=== PATIENT | male | born 1965 | race Caucasian/White ===

== ENCOUNTER → 2016-09-07 | Outpatient (CLI) | payer SELFPAY ==
[2016-09-07 12:57] LABS: CH 32.8; HCT 54.4 % (39.0-53.0); HGB 18.4 gm/dL (13.0-17.5); MCH 32.7 pg (25.0-35.0); MCHC 33.8 g/dL (31.0-37.0); Mean Platelet Volume 8.1; RBC 5.61 m/uL (4.30-5.90); RDW 13.2 % (11.5-15.5); WBC 13.3 k/uL (3.8-10.6)
[2016-09-07 13:15] LABS: ALT 28 U/L (21-72); AST 22 U/L (17-59); Alkaline Phosphatase 61 U/L (38-126); Anion Gap 12 mmol/L; Blood Urea Nitrogen 16 mg/dL (9-20); Calcium 9.5 mg/dL (8.4-10.2); Carbon Dioxide 29 mmol/L (22-30); Chloride 99 mmol/L (98-107); Glucose 132 mg/dL (74-99); Non-African American GFR(MDRD) >60 (>60 ml/min/1.73 sqM); Potassium 3.5 mmol/L (3.5-5.1); Sodium 140 mmol/L (137-145); Total Bilirubin 0.6 mg/dL (0.2-1.3); Total Protein 7.7 g/dL (6.3-8.2)
== END | disposition home or self-care (01) ==
LOC: LABWHC1 12:28
PROVIDERS: ATTEND Surgery
DX: R10.9 Unspecified abdominal pain (principal)
CPT/HCPCS: 36415; 80053; 85027

== ENCOUNTER → 2016-09-14 | Outpatient (CLI) | payer SELFPAY ==
--- NOTE | 2016-09-14 13:21 | CT ---
EXAMINATION TYPE: CT abdomen pelvis w con DATE OF EXAM: 09/14/2016 12:39 PM COMPARISON: CT abdomen and pelvis August 05, 2015. HISTORY: Abdominal pain per order. Generalized abdominal pain since on the July per patient. CT DLP: 3408.8 mGycm, Automated Exposure Control for Dose Reduction was Utilized. CONTRAST: CT scan of the abdomen and pelvis is performed with oral and with IV Contrast, patient injected with 100 mL of Omnipaque 300. FINDINGS: LUNG BASES: No significant abnormality is appreciated. LIVER/GB: A 1.3 cm low dense cysts left hepatic lobe on axial image 21 is stable. PANCREAS: Mild diffuse fatty infiltration of pancreas is redemonstrated. SPLEEN: No significant abno rmality is seen. ADRENALS: Slightly low dense nodular thickening to left adrenal gland on axial image 31 is stable fav or benign. KIDNEYS: No significant abnormality is seen. BOWEL: The oral contrast reaches level of the terminal ileum making evaluation of: Suboptimal. There is no suspicious small or large bowel dilatation identified. Mild wall thickening at level of mid tra nsverse colon is present with similar mild wall thickening seen involving the proximal left:. There a re few diverticula in the sigmoid colon. There is no CT evidence for acute diverticulitis. PROSTATE/SEMINAL VESICLES: There are few scattered pelvic phleboliths seen. Prostate gland is not en larged. LYMPH NODES: No greater than 1cm abdominal or pelvic lymph nodes are appreciated. OSSEOUS STRUCTURES: There is multilevel disc space narrowing and vacuum disc phenomenon throughout th e thoracolumbar spine. OTHER: No significant additional abnormality is seen. IMPRESSION: Cannot exclude a mild multifocal colitis versus product of nondistention otherwise unrema rkable study.
== END ==
LOC: RADCTMAIN 11:48
PROVIDERS: ATTEND Surgery
DX: R10.9 Unspecified abdominal pain (principal)
CPT/HCPCS: 74177; Q9967

== ENCOUNTER → 2017-01-17 | Outpatient (CLI) | payer OTHER ==
--- NOTE | 2017-01-17 12:50 | XR ---
EXAMINATION TYPE: XR lumbosacral spine min 4V DATE OF EXAM: 01/17/2017 CLINICAL HISTORY: pain COMPARISON: NONE TECHNIQUE: Frontal, lateral, and oblique images of the lumbar spine are obtained. FINDINGS: There are 5 lumbar type vertebral bodies identified. The lumbar spine shows satisfactory alignment without evidence of acute fracture or dislocation. Vertebral body heights are within normal limits. Moderate multilevel degenerative disc space narrowing and spondylosis. Facet joint arthropat hy. The overlying soft tissue appears unremarkable. IMPRESSION: No acute fracture or dislocation is seen in the lumbar spine.ICD 10 NO FRACTURE, INITIAL EVALUATION
== END | disposition home or self-care (01) ==
LOC: RADXRMAIN 12:25
PROVIDERS: ATTEND Family Medicine
DX: M13.80 Other specified arthritis, unspecified site (principal); R54 Age-related physical debility
CPT/HCPCS: 72110

== ENCOUNTER 2020-01-08 17:26 | Emergency (ER) | payer MEDICARE, OTHER ==
--- NOTE | 2020-01-08 18:33 | ED ---
Recheck HPI - General Chief Complaint: Recheck/Abnormal Lab/Rx Stated Complaint: poss med reaction/facial swelling & numbness Time Seen by Provider: 01/08/20 18:04 Source: patient, RN notes reviewed Mode of arrival: ambulatory Limitations: no limitations - History of Present Illness Initial Comments: 54-year-old male present emergency from chief complaint of right-sided facial issues. Patient states that he was told that his face looked swollen. Patient states that his mild does not close all the way on the right states she's been drooling states that his eye feels weird on the right. Patient states this started a few days ago. Patient denies any difficulty swallowing no weakness of his upper or lower extremities. No difficulty and bleeding no headache no dizziness. - Related Data Previous Rx's Medication Instructions Recorded predniSONE 50 mg PO DAILY #5 tab 01/08/20 valACYclovir HCL [Valtrex] 1,000 mg PO Q8HR #30 tab 01/08/20 Allergies Allergy/AdvReac Type Severity Reaction Status Date / Time No Known Allergies Allergy Verified 01/08/20 17:30 Review of Systems ROS Statement: Those systems with pertinent positive or pertinent negative responses have been documented in the HPI. ROS Other: All systems not noted in ROS Statement are negative. Past Medical History Additional Past Medical History / Comment(s): [facility] Past Surgical History: Hernia Repair Additional Past Surgical History / Comment(s): Hemmroihd Past Psychological History: No Psychological Hx Reported Smoking Status: Current every day smoker Past Alcohol Use History: Occasional Past Drug Use History: None Reported General Exam Limitations: no limitations General appearance: alert, in no apparent distress Head exam: Present: atraumatic, normocephalic, normal inspection Eye exam: Present: normal appearance, PERRL, EOMI. Absent: scleral icterus, conjunctival injection, periorbital swelling ENT exam: Present: mucous membranes moist, other (Asymmetry noted on the right side of the face). Absent: normal exam, normal oropharynx Neck exam: Present: normal inspection, full ROM. Absent: tenderness, meningismus, lymphadenopathy Respiratory exam: Present: normal lung sounds bilaterally. Absent: respiratory distress, wheezes, rales, rhonchi, stridor Cardiovascular Exam: Present: regular rate, normal rhythm, normal heart sounds. Absent: systolic murmur, diastolic murmur, rubs, gallop, clicks Extremities exam: Present: other (Upper and lower extremity strength equal bilaterally 5/5) Neurological exam: Present: alert, oriented X3, CN II-XII intact, reflexes normal, other. Absent: motor sensory deficit Expanded Patient oriented to: Present: person, place, time Speech: Present: fluid speech Cranial nerves: EOM's Intact: Normal, Gag Reflex: Normal, Tongue Deviation: Normal, Nystagmus: Normal, Facial Sensation: Abnormal Right, Facial Palsy without Forehead Movement: Abnormal Right Cerebellar function: Finger to Nose: Normal, Heel to Maria: Normal, Romberg: Normal Sensory exam: Upper Extremity Light Touch: Normal, Lower Extremity Light Touch: Normal Motor strength exam: RUE: 5, LUE: 5, RLE: 5, LLE: 5 Eye Response: (4) open spontaneously Motor Response: (6) obeys commands Verbal Response: (5) oriented [place] Total: 15 Course Vital Signs 01/08/20 17:30 Temperature 97.8 F Pulse Rate 79 Respiratory 16 Rate Blood Pressure 154/77 O2 Sat by Pulse 98 Oximetry Medical Decision Making - Medical Decision Making 54-year-old male present emergency from for right-sided facial issues. Patient has right-sided Michel's palsy. Patient advised to use artificial tears of his r ight eye, patient will be started on prednisone, Valtrex will follow-up neurology is also advised to follow-up with ECP tomorrow. Disposition Clinical Impression: Right-sided Michel's palsy Disposition: HOME SELF-CARE Condition: Stable Instructions (If sedation given, give patient instructions): Michel Palsy (ED) Additional Instructions: Please return to the Emergency Department if symptoms worsen or any other concerns. Prescriptions: predniSONE 50 mg PO DAILY #5 tab valACYclovir HCL [Valtrex] 1,000 mg PO Q8HR #30 tab Is patient prescribed a controlled substance at d/c from ED?: No Referrals: Mart Bianchi MD [Primary Care Provider] - 1-2 days Tl Munguia DO [STAFF PHYSICIAN] - 1-2 days Time of Disposition: 18:33
[2020-01-08 18:53] VITALS: BP 134/78; PULSE 70; RESP 18; TEMP 97.2
== END 2020-01-08 18:53 | disposition home or self-care (01) ==
LOC: EC 17:26
DX: G51.0 Bell's palsy (principal); F17.200 Nicotine dependence, unspecified, uncomplicated
CPT/HCPCS: 99283

== ENCOUNTER 2020-06-26 09:04 | Inpatient (IN) | payer MEDICARE, OTHER ==
[2020-06-26] MEDS ORDERED: ACETAMINOPHEN TAB 500 MG TAB PO STA (09:29)
[2020-06-26] MEDS ORDERED: ONDANSETRON 4 MG/2 ML VIAL IVP STA (09:29)
[2020-06-26] MEDS ORDERED: SODIUM CHLORIDE 0.9% 1,000 ML IV STA (09:29)
--- NOTE | 2020-06-26 09:38 | ED ---
Weakness HPI - General Chief complaint: Weakness Stated complaint: weakness Time Seen by Provider: 06/26/20 09:21 Source: patient Mode of arrival: EMS Limitations: no limitations - History of Present Illness Initial comments: Patient is a 55-year-old male, with history of TBI, HUGHES, presenting to the emergency Department with complaints of weakness that's been increasing over the past week. Patient states he feels weakness in his legs, he has had a few falls last week. He is complaining of some right shoulder pain from one of his falls. He does not remember hitting his head. He is not on blood thinners. He is complaining of a headache however he states he normally gets headaches, as feels like his normal headache. He takes Tylenol at home for these headaches which does help. He denies being dizzy, no chest pain. He does seem mildly short of breath. He denies any abdominal pain, he did have some nausea and vomiting today. He denies any fevers or chills. He has been having regular bowel movements. Denies any dysuria. He states he's been taking his medications as prescribed. He has no further complaints at this time. Upon arrival to the ER, his vital signs are stable. - Related Data Home Medications Medication Instructions Recorded Confirmed Acetaminophen Tab [Tylenol Tab] 1,000 mg PO Q6HR PRN 06/26/20 06/26/20 Atenolol/Chlorthalidone 1 tab PO DAILY 06/26/20 06/26/20 [Atenolol-Chlorthalidone 50-25] Atorvastatin Calcium [Lipitor] 40 mg PO DAILY 06/26/20 06/26/20 Benazepril HCl 10 mg PO DAILY 06/26/20 06/26/20 Furosemide [Lasix] 40 mg PO TID 06/26/20 06/26/20 Gabapentin [Neurontin] 800 mg PO TID 06/26/20 06/26/20 Hydrocortisone Cream 1 applic TOPICAL QID 06/26/20 06/26/20 [Hydrocortisone 2.5% Cream] Naproxen 500 mg PO BID 06/26/20 06/26/20 Potassium Chloride [Klor-Con 20] 40 meq PO TID 06/26/20 06/26/20 Allergies Allergy/AdvReac Type Severity Reaction Status Date / Time No Known Allergies Allergy Verified 01/29/21 11:19 Review of Systems ROS Statement: Those systems with pertinent positive or pertinent negative responses have been documented in the HPI. ROS Other: All systems not noted in ROS Statement are negative. Past Medical History Additional Past Medical History / Comment(s): HUGHES Past Surgical History: Hernia Repair Additional Past Surgical History / Comment(s): Hemmroihd Past Psychological History: No Psychological Hx Reported Smoking Status: Current every day smoker Past Alcohol Use History: Occasional Past Drug Use History: None Reported General Exam - General Exam Comments Initial Comments: GENERAL: Patient is well-developed and well-nourished. Patient is nontoxic and in no acute distress. HEAD: Atraumatic, normocephalic. EYES: Pupils equal round and reactive to light, extraocular movements intact, sclera anicteric, conjunctiva are normal. Eyelids were unremarkable. ENT: TMs normal, nares patent, oropharynx clear without exudates. Moist mucous membranes. Hard of hearing. NECK: Normal range of motion, supple without lymphadenopathy or JVD. LUNGS: Unlabored respirations. Breath sounds clear to auscultation bilaterally and equal. No wheezes rales or rhonchi. HEART: Regular rate and rhythm without murmurs, rubs or gallops. ABDOMEN: Soft, nontender, normoactive bowel sounds. No guarding, no rebound. No masses appreciated. : Deferred MUSCULOSKELETAL: Mild pain with palpation of the right anterior shoulder, he has full range of motion. Normal extremities with adequate strength and normal range of motion, no pitting or edema. No clubbing or cyanosis. NEUROLOGICAL: Patient is alert and oriented x 3. Motor and sensory are also intact. Cranial nerves II through XII grossly intact. Symmetrical smile. Normal speech, normal gait. PSYCH: Normal mood, normal affect. SKIN: Warm, Dry, normal turgor, no rashes or lesions noted. Limitations: no limitations Course Vital Signs 06/26/20 06/26/20 09:15 10:00 Temperature 98.1 F Pulse Rate 92 90 Respiratory 18 20 Rate Blood Pressure 146/94 150/96 O2 Sat by Pulse 96 95 Oximetry EKG Findings - EKG Comments: EKG Findings:: Sinus rhythm with fusion complexes, possible left atrial enlargement, left axis deviation, no signs of acute ischemia. Ventricular rate 90, VA interval 158, QT 362. Medical Decision Making - Medical Decision Making Patient is a 55-year-old male with history of TBI,HUGHES, presenting for weakness, multiple falls over the past week. His vital signs are stable upon arrival. EKG shows no acute process. Troponin is normal, lactic acid is slightly up at 2.7, urine shows no evidence of infection. Chest x-ray reveals a right-sided mass, no other abnormalities. CT of the chest confirms a right hilar mass consistent with a neoplasm. I did speak with Dr. Bianchi regarding this. Patient will be admitted for weakness, multiple falls and new right-sided mass. Case discussed with Dr. Lester. - Lab Data Result diagrams: 06/26/20 09:31 06/26/20 09:31 Lab Results 06/26/20 06/26/20 06/26/20 Range/Units 09:31 09:31 09:31 WBC 10.2 (3.8-10.6) k/uL RBC 5.09 (4.30-5.90) m/uL Hgb 16.7 (13.0-17.5) gm/dL Hct 47.9 (39.0-53.0) % MCV 94.1 (80.0-100.0) fL MCH 32.8 (25.0-35.0) pg MCHC 34.8 (31.0-37.0) g/dL RDW 12.8 (11.5-15.5) % Plt Count 198 (150-450) k/uL MPV 8.6 Neutrophils % 77 % Lymphocytes % 13 % Monocytes % 7 % Eosinophils % 1 % Basophils % 1 % Neutrophils # 7.9 H (1.3-7.7) k/uL Lymphocytes # 1.3 (1.0-4.8) k/uL Monocytes # 0.7 (0-1.0) k/uL Eosinophils # 0.1 (0-0.7) k/uL Basophils # 0.1 (0-0.2) k/uL PT 11.0 (9.0-12.0) sec INR 1.0 (<1.2) APTT 25.3 (22.0-30.0) sec Sodium (137-145) mmol/L Potassium (3.5-5.1) mmol/L Chloride (98-107) mmol/L Carbon Dioxide (22-30) mmol/L Anion Gap mmol/L BUN (9-20) mg/dL Creatinine (0.66-1.25) mg/dL Est GFR (CKD-EPI)AfAm (>60 ml/min/1.73 sqM) Est GFR (CKD-EPI)NonAf (>60 ml/min/1.73 sqM) Glucose (74-99) mg/dL Lactic Ac Sepsis Rflx Plasma Lactic Acid Steve (0.7-2.0) mmol/L Calcium (8.4-10.2) mg/dL Magnesium (1.6-2.3) mg/dL Total Bilirubin (0.2-1.3) mg/dL AST (17-59) U/L ALT (4-49) U/L Alkaline Phosphatase (38-126) U/L Creatine Kinase (55-170) U/L Troponin I (0.000-0.034) ng/mL NT-Pro-B Natriuret Pep pg/mL Total Protein (6.3-8.2) g/dL Albumin (3.5-5.0) g/dL Urine Color Yellow Urine Appearance Clear (Clear) Urine pH 7.5 (5.0-8.0) Ur Specific [place] 1.020 (1.001-1.035) Urine Protein 2+ H (Negative) Urine Glucose (UA) Negative (Negative) Urine Ketones Negative (Negative) Urine Blood Negative (Negative) Urine Nitrite Negative (Negative) Urine Bilirubin Negative (Negative) Urine Urobilinogen <2.0 (<2.0) mg/dL Ur Leukocyte Esterase Negative (Negative) Urine RBC 2 (0-5) /hpf Urine WBC 3 (0-5) /hpf Urine Mucus Rare H (None) /hpf 06/26/20 06/26/20 06/26/20 Range/Units 09:31 09:31 09:31 WBC (3.8-10.6) k/uL RBC (4.30-5.90) m/uL Hgb (13.0-17.5) gm/dL Hct (39.0-53.0) % MCV (80.0-100.0) fL MCH (25.0-35.0) pg MCHC (31.0-37.0) g/dL RDW (11.5-15.5) % Plt Count (150-450) k/uL MPV Neutrophils % % Lymphocytes % % Monocytes % % Eosinophils % % Basophils % % Neutrophils # (1.3-7.7) k/uL Lymphocytes # (1.0-4.8) k/uL Monocytes # (0-1.0) k/uL Eosinophils # (0-0.7) k/uL Basophils # (0-0.2) k/uL PT (9.0-12.0) sec INR (<1.2) APTT (22.0-30.0) sec Sodium 137 (137-145) mmol/L Potassium 3.8 (3.5-5.1) mmol/L Chloride 102 (98-107) mmol/L Carbon Dioxide 25 (22-30) mmol/L Anion Gap 10 mmol/L BUN 15 (9-20) mg/dL Creatinine 0.67 (0.66-1.25) mg/dL Est GFR (CKD-EPI)AfAm >90 (>60 ml/min/1.73 sqM) Est GFR (CKD-EPI)NonAf >90 (>60 ml/min/1.73 sqM) Glucose 126 H (74-99) mg/dL Lactic Ac Sepsis Rflx Plasma Lactic Acid Steve 2.7 H* (0.7-2.0) mmol/L Calcium 9.0 (8.4-10.2) mg/dL Magnesium 1.9 (1.6-2.3) mg/dL Total Bilirubin 0.7 (0.2-1.3) mg/dL AST 30 (17-59) U/L ALT 33 (4-49) U/L Alkaline Phosphatase 67 (38-126) U/L Creatine Kinase 89 (55-170) U/L Troponin I <0.012 (0.000-0.034) ng/mL NT-Pro-B Natriuret Pep pg/mL Total Protein 7.3 (6.3-8.2) g/dL Albumin 4.0 (3.5-5.0) g/dL Urine Color Urine Appearance (Clear) Urine pH (5.0-8.0) Ur Specific [place] (1.001-1.035) Urine Protein (Negative) Urine Glucose (UA) (Negative) Urine Ketones (Negative) Urine Blood (Negative) Urine Nitrite (Negative) Urine Bilirubin (Negative) Urine Urobilinogen (<2.0) mg/dL Ur Leukocyte Esterase (Negative) Urine RBC (0-5) /hpf Urine WBC (0-5) /hpf Urine Mucus (None) /hpf 06/26/20 06/26/20 06/26/20 Range/Units 09:31 10:05 12:18 WBC (3.8-10.6) k/uL RBC (4.30-5.90) m/uL Hgb (13.0-17.5) gm/dL Hct (39.0-53.0) % MCV (80.0-100.0) fL MCH (25.0-35.0) pg MCHC (31.0-37.0) g/dL RDW (11.5-15.5) % Plt Count (150-450) k/uL MPV Neutrophils % % Lymphocytes % % Monocytes % % Eosinophils % % Basophils % % Neutrophils # (1.3-7.7) k/uL Lymphocytes # (1.0-4.8) k/uL Monocytes # (0-1.0) k/uL Eosinophils # (0-0.7) k/uL Basophils # (0-0.2) k/uL PT (9.0-12.0) sec INR (<1.2) APTT (22.0-30.0) sec Sodium (137-145) mmol/L Potassium (3.5-5.1) mmol/L Chloride (98-107) mmol/L Carbon Dioxide (22-30) mmol/L Anion Gap mmol/L BUN (9-20) mg/dL Creatinine (0.66-1.25) mg/dL Est GFR (CKD-EPI)AfAm (>60 ml/min/1.73 sqM) Est GFR (CKD-EPI)NonAf (>60 ml/min/1.73 sqM) Glucose (74-99) mg/dL Lactic Ac Sepsis Rflx Y Plasma Lactic Acid Steve 1.6 (0.7-2.0) mmol/L Calcium (8.4-10.2) mg/dL Magnesium (1.6-2.3) mg/dL Total Bilirubin (0.2-1.3) mg/dL AST (17-59) U/L ALT (4-49) U/L Alkaline Phosphatase (38-126) U/L Creatine Kinase (55-170) U/L Troponin I (0.000-0.034) ng/mL NT-Pro-B Natriuret Pep 62 pg/mL Total Protein (6.3-8.2) g/dL Albumin (3.5-5.0) g/dL Urine Color Urine Appearance (Clear) Urine pH (5.0-8.0) Ur Specific [place] (1.001-1.035) Urine Protein (Negative) Urine Glucose (UA) (Negative) Urine Ketones (Negative) Urine Blood (Negative) Urine Nitrite (Negative) Urine Bilirubin (Negative) Urine Urobilinogen (<2.0) mg/dL Ur Leukocyte Esterase (Negative) Urine RBC (0-5) /hpf Urine WBC (0-5) /hpf Urine Mucus (None) /hpf Disposition Clinical Impression: Weakness, Multiple falls, Chest mass Disposition: ADMITTED IP TO THIS [facility] Condition: Stable Decision Date: 06/26/20 Decision Time: 14:04
[2020-06-26 09:40] LABS: Basophils # (A) 0.1 k/uL (0-0.2); Basophils % (A) 1 %; Eosinophils # (A) 0.1 k/uL (0-0.7); Eosinophils % (A) 1 %; HCT 47.9 % (39.0-53.0); HGB 16.7 gm/dL (13.0-17.5); Lymphocytes # (A) 1.3 k/uL (1.0-4.8); Lymphocytes % (A) 13 %; MCH 32.8 pg (25.0-35.0); MCHC 34.8 g/dL (31.0-37.0); MCV 94.1 fL (80.0-100.0); Mean Platelet Volume 8.6; Monocytes # (A) 0.7 k/uL (0-1.0); Monocytes % (A) 7 %; Neutrophils # (A) 7.9 k/uL (1.3-7.7); Neutrophils % (A) 77 %; Platelet Count 198 k/uL (150-450); RBC 5.09 m/uL (4.30-5.90); RDW 12.8 % (11.5-15.5); WBC 10.2 k/uL (3.8-10.6)
[2020-06-26 09:49] LABS: Partial Thromboplastin Time 25.3 sec (22.0-30.0)
[2020-06-26 10:01] LABS: ALT 33 U/L (4-49); AST 30 U/L (17-59); African American GFR (CKD) >90 (>60 ml/min/1.73 sqM); Alkaline Phosphatase 67 U/L (38-126); Anion Gap 10 mmol/L; Blood Urea Nitrogen 15 mg/dL (9-20); Carbon Dioxide 25 mmol/L (22-30); Chloride 102 mmol/L (98-107); Creatine Kinase 89 U/L (55-170); Glucose 126 mg/dL (74-99); Magnesium 1.9 mg/dL (1.6-2.3); Non-African American GFR(CKD) >90 (>60 ml/min/1.73 sqM); Potassium 3.8 mmol/L (3.5-5.1); Sodium 137 mmol/L (137-145); Total Bilirubin 0.7 mg/dL (0.2-1.3); Total Protein 7.3 g/dL (6.3-8.2)
--- NOTE | 2020-06-26 10:03 | XR ---
EXAMINATION TYPE: XR chest 2V DATE OF EXAM: 06/26/2020 COMPARISON: NONE HISTORY: Shortness of breath TECHNIQUE: Frontal and lateral views of the chest are obtained. FINDINGS: Scattered senescent parenchymal changes noted. Hyperinflation compatible with COPD. Masslike density right suprahilar region. CT is recommended for further evaluation. Heart size is stable. Mediastinal structures are stable and grossly unremarkable. No evidence for hilar prominence. Degenerative changes dorsal spine. IMPRESSION: 1. Masslike density right suprahilar region. CT is recommended for further evaluation.
--- NOTE | 2020-06-26 10:04 | XR ---
EXAMINATION TYPE: XR shoulder complete RT DATE OF EXAM: 06/26/2020 CLINICAL HISTORY: pain TECHNIQUE: Three views of the right shoulder are obtained. COMPARISON: None FINDINGS: There is no acute fracture/dislocation evident. The acromioclavicular and glenohumeral bridgett int spaces appear within normal limits. The visualized ribs are intact and unremarkable. IMPRESSION: 1. There is no acute fracture or dislocation. ICD 10 NO FRACTURE, INITIAL EVALUATION
[2020-06-26 13:07] LABS: Appearance,Urine Clear (Clear); Bilirubin,Urine Negative (Negative); Blood,Urine Negative (Negative); Color,Urine Yellow; Glucose,Urine (UA) Negative (Negative); Ketones,Urine Negative (Negative); Leukocyte Esterase,Urine Negative (Negative); Mucus,Urine Rare /hpf; Nitrite,Urine Negative (Negative); PH, Urine 7.5 (5.0-8.0); Protein,Urine 2+ (Negative); RBC,Urine 2 /hpf (0-5); Urobilinogen,Urine <2.0 mg/dL (<2.0); WBC,Urine 3 /hpf (0-5)
[2020-06-26] MEDS ORDERED: RX INFO: IV CONTRAST WAS GIVEN 1 EACH MISC MISCELLANE PRN ×2 (13:28→17:18)
[2020-06-26] MEDS ORDERED: KETOROLAC 15 MG/ML 1 ML VIAL IVP PRN (14:04)
[2020-06-26] MEDS ORDERED: NALOXONE 0.4 MG/ML 1 ML VIAL IV PRN (14:04)
--- NOTE | 2020-06-26 14:23 | CT ---
EXAMINATION TYPE: CT chest w con DATE OF EXAM: 06/26/2020 COMPARISON: Chest x-ray earlier today and told her x-ray 2009. HISTORY: Shortness of breath, mass on xray. CT DLP: 799.7 mGycm. Automated Exposure Control for Dose Reduction was Utilized. TECHNIQUE: CT scan of the thorax is performed following with IV Contrast, patient injected with 100 mL of Isovue 300. FINDINGS: LUNGS: There is abnormality medial right upper lobe corresponding to recent x-ray, there is mass or m asslike consolidation. Former is strongly favored with and right hilar invasion. This measures roughl y 10 cm AP by 4 cm transversely axial image 18 x 7 cm craniocaudal dimension sagittal image 48. There appears to be direct extension or additional adenopathy in the right tracheobronchial and right para tracheal region. Slightly enlarged subcarinal lymph node. Tiny right pleural effusion. Mild bibasilar atelectatic change MEDIASTINUM: There are no greater than 1 cm hilar or mediastinal lymph nodes. Tiny pericardial effusi on is seen. Mild cardiomegaly OTHER: Underlying scoliotic curvature. Multilevel spurring. Bilateral gynecomastia. There is 2.1 cm low dense lesion left hepatic lobe. Slight thickening left ad renal gland on axial image 52. No definitive masses. IMPRESSION: Confirmation of right hilar mass with anterior superior upper lobe extension consistent w ith neoplasm. Possible postobstructive atelectatic change. Abnormal thoracic adenopathy. Follow-up PE T CT and Sampling is advised.
[2020-06-26] MEDS: SODIUM CHLORIDE 0.9% 1,000 ML IV SCH (15:22)
[2020-06-26] MEDS ORDERED: ACETAMINOPHEN TAB 500 MG TAB PO PRN (17:16)
[2020-06-26] MEDS: ONDANSETRON 4 MG/2 ML VIAL IVP PRN (18:05)
[2020-06-26] MEDS: FUROSEMIDE 40 MG TAB PO SCH (20:13)
[2020-06-26] MEDS: POTASSIUM CHLORIDE ER 20 MEQ TAB.ER PO SCH (22:04)
[2020-06-26] MEDS: GABAPENTIN 400 MG CAP PO SCH (22:05)
[2020-06-27] MEDS: ACETAMINOPHEN TAB 325 MG TAB PO PRN ×2 (03:05→14:50)
[2020-06-27] MEDS: ONDANSETRON 4 MG/2 ML VIAL IVP PRN (03:05)
[2020-06-27] MEDS: SODIUM CHLORIDE 0.9% 1,000 ML IV SCH ×2 (04:03→17:26)
[2020-06-27 07:49] VITALS: RESP 18
[2020-06-27] MEDS: FUROSEMIDE 40 MG TAB PO SCH ×3 (08:06→17:22)
[2020-06-27] MEDS: GABAPENTIN 400 MG CAP PO SCH ×2 (08:06→16:43)
[2020-06-27] MEDS: POTASSIUM CHLORIDE ER 20 MEQ TAB.ER PO SCH ×2 (08:28→16:43)
[2020-06-27] MEDS ORDERED: CHLORTHALIDONE 25 MG TAB PO SCH (09:00)
[2020-06-27] MEDS ORDERED: atenoloL 50 MG TAB PO SCH (09:00)
[2020-06-27] MEDS ORDERED: lisinopriL 10 MG TAB PO SCH (09:00)
[2020-06-27] MEDS ORDERED: lisinopriL 20 MG TAB PO SCH (10:15)
--- NOTE | 2020-06-27 10:55 | P.GSCN ---
History of Present Illness Consult date: 06/27/20 Reason for Consult: Right upper lobe lung mass Requesting physician: Mart Bianchi History of present illness: This is a 55-year-old gentleman who follows on an outpatient basis with Dr. Bianchi for primary care. He has a previous medical history of traumatic brain injury, hypertension, hyperlipidemia, and current tobacco dependence. He presented to [facility] emergency room with complaints of lower extremity weakness over the previous several days. He reports increased lower extremity edema and multiple falls, he did hit his head but it's unclear if he lost consciousness. He also reports vomiting, headache, denies shortness of breath or chest pain. He was concerned about Covid as well as his lower extremity weakness. Lab work reported really no significant abnormalities except elevated lactic acid of 2.7, pickett virus PCR was negative. He has remained afebrile, blood pressure was quite elevated but has come down since admission. He is oxygenating well on room air. Chest x-ray completed in the emergency room demonstrated masslike density in the right suprahilar region. Follow-up chest CT confirmed a right hilar mass most probably consistent with neoplasm. There are no previous chest x-rays or CAT scans in our system for comparison. Due to CT findings Dr. Magana from cardiothoracic surgery was consulted for surgical recommendations. Review of Systems Review of systems was completed and was negative except as noted - Constitutional Reports chronic headaches - Cardiovascular Reports as per HPI, Reports leg edema - Gastrointestinal Reports as per HPI, Reports vomiting - Musculoskeletal Reports as per HPI, Reports frequent falls, Reports muscle weakness Past Medical History Past Medical History: Hearing Disorder / Deafness, Hyperlipidemia, Hypertension, Rheumatoid Arthritis (RA) Additional Past Medical History / Comment(s): Traumatic brain injury which pt states caused bilateral difficulty hearing, RA which bothers him in his legs, L hand numbness after electrcution injury. History of Any Multi-Drug Resistant Organisms: None Reported Past Surgical History: Hernia Repair Additional Past Surgical History / Comment(s): Abdominal hernia, hemorrhoidectomy Past Anesthesia/Blood Transfusion Reactions: No Reported Reaction Additional Psychological History / Comment(s): Traumatic brain injury Smoking Status: Current every day smoker Past Alcohol Use History: Rare Past Drug Use History: None Reported Additional History: Smokes a pack a day for 19 years - Past Family History Mother Additional Family Medical History / Comment(s): Mother of a blood disease. Father Additional Family Medical History / Comment(s): Father of heart problems. Medications and Allergies Home Medications Medication Instructions Recorded Confirmed Type Acetaminophen Tab [Tylenol Tab] 1,000 mg PO Q6HR PRN 06/26/20 06/26/20 History Atenolol/Chlorthalidone 1 tab PO DAILY 06/26/20 06/26/20 History [Atenolol-Chlorthalidone 50-25] Atorvastatin Calcium [Lipitor] 40 mg PO DAILY 06/26/20 06/26/20 History Benazepril HCl 10 mg PO DAILY 06/26/20 06/26/20 History Furosemide [Lasix] 40 mg PO TID 06/26/20 06/26/20 History Gabapentin [Neurontin] 800 mg PO TID 06/26/20 06/26/20 History Hydrocortisone Cream 1 applic TOPICAL QID 06/26/20 06/26/20 History [Hydrocortisone 2.5% Cream] Naproxen 500 mg PO BID 06/26/20 06/26/20 History Potassium Chloride [Klor-Con 20] 40 meq PO TID 06/26/20 06/26/20 History Allergies Allergy/AdvReac Type Severity Reaction Status Date / Time No Known Allergies Allergy Verified 06/26/20 11:19 Surgical - Exam Vital Signs Temp Pulse Resp BP Pulse Ox 98.1 F 92 18 146/94 96 06/26/20 09:15 06/26/20 09:15 06/26/20 09:15 06/26/20 09:15 06/26/20 09:15 - General well developed, well nourished, no distress, no pain - Eyes normal ocular movement - ENT decreased hearing - Neck no masses, no bruits, trachea midline - Respiratory Lungs sounds clear but diminished bilaterally. Respirations even, nonlabored. Currently on room air with oxygen saturation in the mid 90s. No chest wall deformities. No clubbing or cyanosis present. - Cardiovascular S1, S2 present. Regular rate and rhythm, sinus rhythm without acute ischemic changes on EKG. Palpable peripheral pulses bilaterally. 1+ bilateral lower extremity edema present. No calf pain or tenderness noted. - Abdomen Abdomen: soft, non tender, bowel sounds - Genitourinary Deferred - Rectum Deferred - Integumentary no rash, no growths - Neurologic Slow to respond, slow speech patterns normal coordination - Musculoskeletal normal posture - Psychiatric oriented to time, oriented to person, oriented to place Results - Labs 06/26/20 09:31 06/26/20 09:31 Abnormal Lab Results - Last 24 Hours (Table) 06/26/20 Range/Units 09:31 Urine Protein 2+ H (Negative) Urine Mucus Rare H (None) /hpf - Imaging Chest x-ray: report reviewed, image reviewed CT scan - chest: report reviewed, image reviewed Assessment and Plan Assessment: 1. Right hilar mass demonstrated on chest x-ray, confirmed on computed tomography scan, consistent with probable neoplasm 2. Recent history of multiple falls 3. Current chronic tobacco dependence 4. History of traumatic brain injury 5. Hypertension 6. History of hyperlipidemia, treated Plan: The patient was seen and examined at the bedside. Chart/diagnostics were reviewed. The case was discussed in detail with Dr. Magana from cardiothoracic surgery. The patient is currently in no acute distress. He is scheduled for a CT of the brain this afternoon. Oncology has been consulted, appreciate recommendations. Physical therapy has been consulted due to weakness. Continue current medication regimen. Counseled patient on smoking cessation. Patient will be need workup of right hilar mass. Recommend PET scan, needle biopsy. No surgery from our standpoint at this time until we have tissue diagnosis and PET scan completed. Please call us with any questions. Thank you Dr. Bianchi for this consult. Time with Patient: Greater than 30
[2020-06-27 13:56] VITALS: BP 107/75; PULSE 85; TEMP 97.5
--- NOTE | 2020-06-27 14:16 | CT ---
EXAMINATION TYPE: CT brain w con DATE OF EXAM: 06/27/2020 COMPARISON: None HISTORY: Mental status changes CT DLP: 1167.7 mGycm Automated exposure control for dose reduction was used. CONTRAST: Performed with IV Contrast, patient injected with 100 mL of Isovue 300. There is a 2.4 cm rounded high density mass in the right posterior temporal lobe at the ferrara-white ma tter junction. There is a similar mass in the right cerebellar hemisphere measuring 3 cm. There is a 2 cm mixed density mass also in the anterior aspect left cerebellar hemisphere. There is a 2.2 x 1.5 cm high density mass adjacent to the fourth ventricle on the left side in the posterior fossa. There is enlargement of the ventricles. Multiple brain masses are ring-enhancing type lesions consistent wi th metastatic disease. The calvarium is intact. 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 IMPRESSION: Multiple ring-enhancing masses in the brain with surrounding edema and mass effect. This is consisten t with metastatic disease. One of the lesions is adjacent to the fourth ventricle and appears to be p roducing obstructive hydrocephalus. 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
--- NOTE | 2020-06-27 14:25 | HP ---
HISTORY AND PHYSICAL CHIEF COMPLAINT: Weakness and multiple falls. HISTORY OF PRESENT ILLNESS: This is another apparent admission of this 55-year-old white male who is quite debilitated. He has developmental disability. He is also overweight and smokes a great deal. He has a history of a hypertension, hyperlipidemia and obesity. He has been falling at home and he lives with a brother who encouraged him to come emergency room. In the emergency room he was found to have a right upper lobe mass. He has been having headaches, but is not complaining of any focal neurologic deficits or change in vision. He is not a reliable historian. He will be a difficult management case based on his mental debility. REVIEW OF SYSTEMS: Review of systems is not reliably obtained. Past medical history, family history, and personal and social histories reveal that he has been on Ultram, gabapentin 4 mg q.i.d., benazepril 10 mg once a day, Tenoretic 50- 25 once a day, Naprosyn 500 b.i.d. atorvastatin 40 once a day, Lasix 40 mg t.i.d., potassium 20 mEq 6 a day and vitamin D. PHYSICAL EXAMINATION: Blood pressure is 137/85 with a pulse of 86 and regular. Respirations were 34. In general, he appeared to be overweight and slightly lethargic. He was definitely less alert, more lethargic than he is even normally. He normally has slow speech. Head, ears, eyes, nose, mouth, and throat seem to be normal. Neck veins are not distended. Chest demonstrated poor breath sounds throughout with scattered rales and rhonchi. Cardiac exam demonstrates sinus rhythm and no murmurs or extra sounds. The abdomen is protuberant, soft and nontender without visceromegaly masses. Bowel sounds are present. Extremities: Normal. Neurologically, other than his cognitive disabilities, he seemed to be intact. IMPRESSION: He is admitted to the hospital with diagnoses: 1. Frequent episodes of falling. 2. Right upper lobe lung mass. 3. Chronic obstructive pulmonary disease. 4. Possible central nervous system metastases. 5. Chronic obstructive pulmonary disease. 6. Hypertension. 7. Mental debility. PLAN: 1. Bed rest. 2. IV fluids. 3. CT of the brain. 4. Consult with thoracic surgery, Oncology, physical therapy and discharge planning. MMODL / IJN: [id number] /
--- NOTE | 2020-06-27 14:40 | PN ---
PROGRESS NOTE CHIEF COMPLAINT: Weakness, falling, right lung mass and possible central nervous system METS. HISTORY OF PRESENT ILLNESS: This gentleman is stable. He is complaining somewhat of a headache. PHYSICAL EXAM: Unchanged. Chest is clear. Cardiac exam is normal. Abdomen is soft, nontender. IMPRESSION: 1. 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 2. Probable metastases to brain. 3. Chronic obstructive pulmonary disease. PLAN: Continue workup and await opinions of the adult specialist. MMODL / IJN: [id number] /
[2020-06-27] MEDS ORDERED: IOPAMIDOL CONTRAST (ORAL USE) VIAL PO PRN (15:28)
--- NOTE | 2020-06-27 15:38 | P.CONS ---
History of Present Illness - Reason for Consult Consult date: 06/27/20 Lung Cancer Requesting physician: Mart Bianchi - Chief Complaint Falls and Mental Status Changes - History of Present Illness Patient is a 55-year-old male, with weakness in his legs, he has had a few falls last week. FOund to have Large Right Lung Mass with diffuse metastatic disease in brain concerning for fourth ventricle obstructive hydrocephalus. I spoke to Dr. Burns at [facility] and will plan to transfer to Dr. [facility] at [place] for Tertiary care need of neurosurgeon. Past Medical History Past Medical History: Hearing Disorder / Deafness, Hyperlipidemia, Hypertension, Rheumatoid Arthritis (RA) Additional Past Medical History / Comment(s): Traumatic brain injury which pt states caused bilateral difficulty hearing, RA which bothers him in his legs, L hand numbness after electrcution injury. History of Any Multi-Drug Resistant Organisms: None Reported Past Surgical History: Hernia Repair Additional Past Surgical History / Comment(s): Abdominal hernia, hemorrhoidectomy Past Anesthesia/Blood Transfusion Reactions: No Reported Reaction Additional Psychological History / Comment(s): Traumatic brain injury Smoking Status: Current every day smoker Past Alcohol Use History: Rare Past Drug Use History: None Reported - Past Family History Mother Additional Family Medical History / Comment(s): Mother of a blood disease. Father Additional Family Medical History / Comment(s): Father of heart problems. Medications and Allergies Home Medications Medication Instructions Recorded Confirmed Type Acetaminophen Tab [Tylenol Tab] 1,000 mg PO Q6HR PRN 06/26/20 06/26/20 History Atenolol/Chlorthalidone 1 tab PO DAILY 06/26/20 06/26/20 History [Atenolol-Chlorthalidone 50-25] Atorvastatin Calcium [Lipitor] 40 mg PO DAILY 06/26/20 06/26/20 History Benazepril HCl 10 mg PO DAILY 06/26/20 06/26/20 History Furosemide [Lasix] 40 mg PO TID 06/26/20 06/26/20 History Gabapentin [Neurontin] 800 mg PO TID 06/26/20 06/26/20 History Hydrocortisone Cream 1 applic TOPICAL QID 06/26/20 06/26/20 History [Hydrocortisone 2.5% Cream] Naproxen 500 mg PO BID 06/26/20 06/26/20 History Potassium Chloride [Klor-Con 20] 40 meq PO TID 06/26/20 06/26/20 History Allergies Allergy/AdvReac Type Severity Reaction Status Date / Time No Known Allergies Allergy Verified 06/26/20 11:19 Physical Exam Vitals: Vital Signs Temp Pulse Resp BP Pulse Ox 06/27/20 13:56 97.5 F L 85 18 107/75 92 L 06/27/20 08:00 91 18 06/27/20 07:49 98.5 F 91 18 138/98 94 L 06/27/20 02:00 98.0 F 78 17 164/110 96 06/26/20 20:00 98.2 F 90 17 167/97 93 L 06/26/20 15:42 97.7 F 90 18 129/93 96 Intake and Output 06/26/20 06/27/20 06/27/20 22:59 06:59 14:59 Intake Total 240 300 Output Total 175 Balance 240 125 Intake: Oral 240 300 Output: Urine 175 Other: Voiding Method Toilet Urinal # Voids 1 1 - General well developed, well nourished, no acute distress awake and interacts with conversation appropriately - Eyes Pupils reactive - ENT Hard of Hearing - Neck Supple trachea midline - Respiratory Lungs sounds diminished bilaterally. No increased respiratory effort noted - Cardiovascular S1, S2 present. Regular rate and rhythm, 2+ bilateral lower extremity edema present. - Abdomen soft, non tender, bowel sounds x4 - Integumentary no rash, no lesion - Neurologic Response to questions slow - Psychiatric oriented to time, oriented to person, oriented to place Results CBC & Chem 7: 06/26/20 09:31 06/26/20 09:31 Assessment and Plan (1) Brain metastases Current Visit: Yes Status: Acute Code(s): C79.31 - SECONDARY MALIGNANT NEOPLASM OF BRAIN SNOMED Code(s): 79179740 (2) Lung mass Narrative/Plan: Medial Right Upper Lobe Mass-Like Consolidation first Identified on Chest Xray (06/26/20) and further described on CT Chest with Contrast on 06/26/20 - [id number] with direct extension within the right trachialbronchial and Right paratrachial region, possibly further adenopathy, and increased sized Subcarinal Nodes. - Low Density Lesion in Left Hepatic Node Current Visit: Yes Status: Acute Code(s): R91.8 - OTHER NONSPECIFIC ABNORMAL FINDING OF LUNG FIELD SNOMED Code(s): 540191683 (3) Multiple falls Current Visit: Yes Status: Acute Code(s): R29.6 - REPEATED FALLS SNOMED Code(s): 337199288 Plan: Assessment and Recommendations: Concerning Picture for Metastatic Malignant Process: - Consistent with picture of a metastatic Lung Cancer - Will need Tissue Biopsy of Large Lung Mass and Likely sampling quantity to be able to further run molecular tests. Metastatic Disease to Brain: - With associated edema and 4th ventricle obstructive hydrocephalus - Will discuss with neurosurgery. - Dexamethasone initial 20mg IV x1 then 6mg IV q6 with PPI initiated - Picture is concerning for a small cell etiology, although will need to await path. - Son understands this metastatic picture is not curable and intent of treatment will be for Palliative intent. He is discussing with Sister Francisca regarding code status. Will ask IR to obtain Biopsy Will complete staging with CT scans as if small cell will need to initiate treatment with Whole Brain XRT and likely Simultaneous Chemotherapy BIRDIE. Usually preferred to undergo radiation then chemotherapy although depending on pathology and rate of disease, concurrent may outweigh risks to obtain control of disease - Will await biopsy and Path Pulmonary to follow - Defer if Bronch is better suited for tissue biopsy to Pul monology [facility] Consultation placed No Anticoagulations, NSAIDS at this time.
[2020-06-27] MEDS ORDERED: DEXAMETHASONE SOD PHOSPHATE 4 MG/ML 1 ML VIAL IV STA (15:48)
[2020-06-27] MEDS ORDERED: DEXAMETHASONE SOD PHOSPHATE 20 MG in DEXTROSE 5% IN WATER 50 ML IV STA ×2 (15:53)
[2020-06-27] MEDS ORDERED: PANTOPRAZOLE 40 MG TABLET PO SCH (17:30)
[2020-06-27] MEDS ORDERED: DEXAMETHASONE SOD PHOSPHATE 4 MG/ML 1 ML VIAL IV SCH (18:00)
[2020-06-28] MEDS ORDERED: DEXAMETHASONE SOD PHOSPHATE 10 MG/ML 1 ML VIAL IV SCH
--- NOTE | 2020-07-01 07:22 | DS ---
DISCHARGE SUMMARY CHIEF COMPLAINT: Frequent falling. HISTORY OF PRESENT ILLNESS AND PHYSICAL EXAM: Details of this man's history and physical can be found in the initial workup. LABORATORY STUDIES: While he was in the hospital, he had laboratory studies, the details of which can be found in the laboratory section of his chart. Chest x-ray revealed a right hilar mass. COURSE IN THE HOSPITAL: After admission, he was placed on bedrest and started on workup for his episodes of falling. He did have mental debility which was chronic, however, his mental status had deteriorated. He was having trouble with speech. He was found to have a mass in the right upper hilum and further studies were ordered including CT of the brain. He was seen in consultation by Neurology, who wanted him transferred immediately to [facility] in [place], and this was carried out. FINAL DIAGNOSIS: 1. Frequent falling. 2. Right superior hilar mass. 3. Mental status changes. 4. Mental debility. 5. History of chronic obstructive pulmonary disease. 6. History of hypertension. OPERATIONS: None. CONSULTATION: Neurology. He was not improved. MMODL / IJN: [id number] /
== END 2020-06-27 18:18 | disposition short-term general hospital (02) | DRG 57 ==
LOC: EC 09:04 → 6NMEDSUR 14:05 → OBSVTOIN 06-27 16:38
PROVIDERS: ADMIT Family Medicine; ATTEND Family Medicine
DX: G91.1 Obstructive hydrocephalus (principal); C34.01 Malignant neoplasm of right main bronchus; C79.31 Secondary malignant neoplasm of brain; Z68.42 Body mass index [BMI] 45.0-49.9, adult; R53.1 Weakness; E66.9 Obesity, unspecified; J44.9 Chronic obstructive pulmonary disease, unspecified; M06.9 Rheumatoid arthritis, unspecified; I10 Essential (primary) hypertension; Z20.822 Contact with and (suspected) exposure to COVID-19; E78.5 Hyperlipidemia, unspecified; F89 Unspecified disorder of psychological development; H91.90 Unspecified hearing loss, unspecified ear; M25.511 Pain in right shoulder; R29.6 Repeated falls; R53.81 Other malaise; F17.210 Nicotine dependence, cigarettes, uncomplicated; Z71.6 Tobacco abuse counseling; Z79.1 Long term (current) use of non-steroidal anti-inflammatories (NSAID); Z79.899 Other long term (current) drug therapy; Z91.81 History of falling; Z87.19 Personal history of other diseases of the digestive system; Z87.820 Personal history of traumatic brain injury; Z98.890 Other specified postprocedural states; W19.XXXA Unspecified fall, initial encounter; Y92.009 Unspecified place in unspecified non-institutional (private) residence as the place of occurrence of the external cause; Z83.2 Family history of diseases of the blood and blood-forming organs and certain disorders involving the immune mechanism; Z82.49 Family history of ischemic heart disease and other diseases of the circulatory system
CPT/HCPCS: 36415; 70460; 71046; 71260; 80053; 81001; 82550; 83605; 83735; 83880; 84484; 85025; 85610; 85730; 87635; 93005; 96361; 96374; 99285